=== PATIENT | male | born 1955 | race Caucasian/White ===

== ENCOUNTER 2018-08-11 17:26 | Emergency (ER) | END 2018-08-11 22:49 | disposition home or self-care (01) ==

== ENCOUNTER 2018-09-23 13:28 | Emergency (ER) | payer OTHER ==
[~2018-09-23] VITALS: Wt 65.5 kg
[2018-09-23 13:34] VITALS: BP 101/57; PULSE 81; RESP 19
[2018-09-23] MEDS ORDERED: KETOROLAC 30 MG INJ IM STA (15:17)
[2018-09-23] MEDS ORDERED: TYL500 PO (17:21)
[2018-09-23] MEDS ORDERED: IBUP-1542 PO (17:21)
[2018-09-23] MEDS ORDERED: METH750T93 PO (17:22)
--- NOTE | 2018-09-23 18:39 | ERD ---
ER Documentation Chief Complaint Chief Complaint bib self, cc: generalized body pains HPI 63-year-old male presents for generalized body pain times 4 months. He states that he was here 4 months ago. He had some CT scans that were largely unremarkable. Patient was advised to follow-up with Orth O and neurologist. Patient states that he did follow-up with neurology and was told that there is nothing wrong with him. He also states that he follow-up with orthopedic surgery and was told that his issue is not with his bones but with his muscles. Patient did subsequent see a physician who did an EMG. Patient states that the results are pending. Patient states that for the past couple days has been having difficulty walking. He has not tried any medications at home. Denies loss of bowel or bladder function. ROS All systems reviewed and are negative except as per history of present illness. Medications Home Meds Active Scripts Methocarbamol* (Robaxin*) 750 Mg Tablet, 750 MG PO TID PRN for MUSCLE SPASMS, #30 TAB Prov:PAPI CAIN 09/23/18 Ibuprofen* (Motrin*) 600 Mg Tab, 600 MG PO Q6H PRN for PAIN AND OR ELEVATED TEMP, #30 TAB Prov:PAPI CAIN 09/23/18 Acetaminophen* (Tylenol*) 500 Mg Tab, 500 MG PO Q4H PRN for MILD PAIN LEVEL 1-3, #30 TAB Prov:PAPI CAIN 09/23/18 Allergies Allergies: Coded Allergies: No Known Allergy (Unverified , 08/11/18) PMhx/Soc Medical and Surgical Hx: pt denies Surgical Hx Hx Alcohol Use: No Hx Substance Use: No Hx Tobacco Use: Yes (1/2 pack a day) Smoking Status: Current every day smoker Physical Exam Vitals Vital Signs Date Temp Pulse Resp B/P (MAP) Pulse Ox O2 O2 Flow FiO2 Time Delivery Rate 09/23/18 98.3 81 19 101/57 100 13:34 (72) Physical Exam Const: No acute distress Head: Atraumatic Eyes: Normal Conjunctiva ENT: Normal External Ears, Nose and Mouth. Neck: Full range of motion. No meningismus. Resp: Clear to auscultation bilaterally Cardio: Regular rate and rhythm, no murmurs, bilateral radial and dorsalis ped is pulses intact Abd: Soft, non tender, non distended. Normal bowel sounds Skin: No petechiae or rashes Back: No midline or flank tenderness Ext: No cyanosis, or edema, 5 out of 5 muscle strength bilateral upper and lower extremity while patient is seated. There is diffuse muscle tenderness to palpation. Neur: Awake and alert, bilateral upper and lower extremity sensation intact Psych: Normal Mood and Affect Result Diagram: 09/23/18 1538 09/23/18 1538 Results 24 hrs Laboratory Tests Test 09/23/18 15:38 White Blood Count 13.6 10^3/ul Red Blood Count 5.07 10^6/ul Hemoglobin 15.3 g/dl Hematocrit 46.0 % Mean Corpuscular Volume 90.7 fl Mean Corpuscular Hemoglobin 30.2 pg Mean Corpuscular Hemoglobin Concent 33.3 g/dl Red Cell Distribution Width 13.3 % Platelet Count 254 10^3/UL Mean Platelet Volume 9.0 fl Immature Granulocytes % 0.400 % Neutrophils % 73.0 % Lymphocytes % 14.4 % Monocytes % 11.3 % Eosinophils % 0.5 % Basophils % 0.4 % Nucleated Red Blood Cells % 0.0 /100WBC Immature Granulocytes # 0.060 10^3/ul Neutrophils # 9.9 10^3/ul Lymphocytes # 2.0 10^3/ul Monocytes # 1.5 10^3/ul Eosinophils # 0.1 10^3/ul Basophils # 0.1 10^3/ul Nucleated Red Blood Cells # 0.0 10^3/ul Erythrocyte Sedimentation Rate 52 mm/Hr Urine Color RACQUEL Urine Clarity SLIGHTLY CLOUDY Urine pH 5.0 Urine Specific [place] 1.020 Urine Ketones NEGATIVE mg/dL Urine Nitrite NEGATIVE mg/dL Urine Bilirubin NEGATIVE mg/dL Urine Urobilinogen 2+ mg/dL Urine Leukocyte Esterase TRACE Gamal/ul Urine Microscopic RBC 10 /HPF Urine Microscopic WBC 7 /HPF Urine Squamous Epithelial Cells FEW /HPF Urine Hyaline Casts FEW /HPF Urine Mucus MODERATE /HPF Urine Hemoglobin NEGATIVE mg/dL Urine Glucose NEGATIVE mg/dL Urine Total Protein 1+ mg/dl Sodium Level 138 mmol/L Potassium Level 3.6 mmol/L Chloride Level 95 mmol/L Carbon Dioxide Level 34 mmol/L Anion Gap 9 Blood Urea Nitrogen 26 mg/dl Creatinine 1.34 mg/dl Est Glomerular Filtrat Rate mL/min 54 mL/min Glucose Level 126 mg/dl Calcium Level 10.2 mg/dl Total Bilirubin 0.7 mg/dl Direct Bilirubin 0.00 mg/dl Indirect Bilirubin 0.7 mg/dl Aspartate Amino Transf (AST/SGOT) 21 IU/L Alanine Aminotransferase (ALT/SGPT) < 6 IU/L Alkaline Phosphatase 76 IU/L Creatine Kinase 71 IU/L C-Reactive Protein 32.6 mg/dl Total Protein 7.8 g/dl Albumin 4.2 g/dl Globulin 3.60 g/dl Albumin/Globulin Ratio 1.16 Current Medications Medications Dose Sig/Kelly Start Time Status Last (Trade) Ordered Route PRN Stop Time Admin Dose Reason Admin Ketorolac 30 mg ONCE STAT 09/23/18 DC 09/23/18 Tromethamine IM 15:17 15:45 (Toradol) 09/23/18 15:19 Procedures/MDM Medical Decision Making: Differential diagnosis includes but not limited to myositis, muscle cramp, rhabdomyolysis, polymyalgia rheumatica, endocrine disorder Patient appeared well on physical exam. Patient also complaining of diffuse muscle pain. CBC showed mildly elevated WBC of 13.6, no anemia noted CMP showed no electrolyte disorder, creatinine mildly elevated at 1.34, patient had normal LFTs CRP elevated at 32.6 ESR elevated at 52 CK was normal Patient appears to have an inflammatory process, possible myositis Patient got an EMG done as an outpatient. Patient advised to follow for results. Patient advised to follow-up closely with PCP and neurologist. ED course: Patient was given Toradol. Symptoms improved with treatment. Prescription(s): Patient given prescription for Robaxin, Tylenol, Motrin. Patient advised to follow up with PCP in 1-2 days. Patient advised to return to ED for new or worsening symptoms. Patient stable on discharge from the ED. Disclaimer: Inadvertent spelling and grammatical errors are likely due to EHR/dictation software use and do not reflect on the overall quality of patient care. Also, please note that the electronic time recorded on this note does not necessarily reflect the actual time of the patient encounter. Departure Diagnosis: Primary Impression: Pain Condition: Fair Patient Instructions: Pain Management Referrals: CORTNEY NDIAYE MD (PCP) Additional Instructions: Call your primary care doctor TOMORROW for an appointment during the next 1-2 days.See the doctor sooner or return here if your condition worsens before your appointment time. PAPI CAIN DO Sep 23, 2018 18:39
== END 2018-09-23 17:37 | disposition home or self-care (01) ==
LOC: FTE 13:28
DX: R52 Pain, unspecified (principal); F17.210 Nicotine dependence, cigarettes, uncomplicated
CPT/HCPCS: 80053; 81001; 82550; 85025; 85651; 86140; 96372; J1885; Z7502